=== PATIENT | female | born 1965 | race Caucasian/White ===

== ENCOUNTER 2016-09-27 05:03 | Inpatient (IN) | payer OTHER ==
[~2016-09-27] VITALS: Ht 160 cm; Wt 65.7 kg
[~2016-09-27 05:03] MED LIST: ASCORBIC ACID500 M3 PO; ATIVAN0.5 MG PO; ATORVASTATIN CA10 MG PO; COPAXONE40 MG/1 ML SC; CYMBALTA60 MG PO; FLEXERIL10 MG PO; INDOCIN25 MG PO; LO-DOSE ASPIRIN81 M2 PO; NORCO 5/3251 TABLET PO; NORVASC10 MG PO; OMEGA 3 500 SO1 EACH PO; PANTOPRAZOLE SO40 MG PO; PRILOSEC20 MG PO; VITAMIN B-122000 MC1 PO; VITAMIN D31000 UNI2 PO
[2016-09-27 06:13] VITALS: BP 133/89
[2016-09-27 15:12] VITALS: BP 136/75
[2016-09-27 20:09] VITALS: BP 145/95
[2016-09-27 23:36] VITALS: BP 107/65
[2016-09-28 05:07] VITALS: BP 125/78
[2016-09-28 08:17] VITALS: BP 142/87
[2016-09-28 12:29] VITALS: BP 142/74
[2016-09-28 16:35] VITALS: BP 122/62
[2016-09-28 23:43] VITALS: BP 124/60
[2016-09-29 16:00] VITALS: BP 134/62
[2016-09-29 23:41] VITALS: BP 106/59
[2016-09-30 09:19] VITALS: BP 107/71
[2016-10-04 10:37] LABS: INTERNAL CONTROL VALID? YES
== END 2016-09-30 12:00 | disposition home or self-care (01) | DRG 460 ==
LOC: 2SOUTH → 3EAST 05:03 → 2SOUTH 09:28 → SDC 12:25 → EDSTATUS 12:25 → 2SOUTH 12:26 → 3EAST 14:48
PROVIDERS: Neurological Surgery
DX: M43.16 Spondylolisthesis, lumbar region (principal); G35 Multiple sclerosis; I10 Essential (primary) hypertension; F17.210 Nicotine dependence, cigarettes, uncomplicated; M54.16 Radiculopathy, lumbar region; M54.12 Radiculopathy, cervical region; M53.2X6 Spinal instabilities, lumbar region; E78.5 Hyperlipidemia, unspecified; Z88.5 Allergy status to narcotic agent; Z85.41 Personal history of malignant neoplasm of cervix uteri
CPT/HCPCS: 72100; 76000; 84703; 94799; 95886; 95938; 97530 GO; 97530 GP; J0330; J0690; J1100; J1170; J1580; J2405; J3010; J3370; J7120